=== PATIENT | female | born 1995 | race African-American/Black ===

== ENCOUNTER 2016-05-08 12:14 | Emergency (ER) | payer MEDICAID ==
[~2016-05-08] VITALS: Ht 157.5 cm; Wt 90.0 kg
[~2016-05-08 12:14] MED LIST: ADVAI500I PO; ALBU0.086 NEB; ALBU8I INH; MACR100C PO; METR-1 PO; MOME17I; MONT10TA2 PO
[2016-05-08 12:17] VITALS: BP 122/64; PULSE 65; RESP 14; TEMP 98.1; O2SAT 100
[2016-05-08] MEDS ORDERED: cefTRIAXone 250 MG VIAL IM ONE (12:30)
[2016-05-08] MEDS ORDERED: AZITHROMYCIN PWD FOR SUSP 1 GM PACKET PO ONE (12:30)
[2016-05-08] MEDS ORDERED: LIDOCAINE HCL 1% 50 ML VIAL IM ONE (12:30)
--- NOTE | 2016-05-08 12:59 | PD ---
HPI Chief Complaint: Strawhat Sizer Problem/Complaint Time Seen by Provider: 12:30 Travel History International Travel<30 days: No Contact w/Intl Traveler<30days: No Traveled to known affect area: No History of Present Illness HPI 20-year-old female presents to the emergency room for evaluation of vaginal itching, odor, discharge, urgency, and frequency for the past 2 weeks. Chest reports a left labial bump for the past 2 weeks. Bump is not painful and has not drained or had any surrounding erythema or edema. Patient denies hematuria , dysuria, flank pain, abdominal pain, fever, chills, nausea, and vomiting. Last period was one week ago. She has been having unprotected sex. PFSH Past Medical History Asthma: Yes Diminished Hearing: No Respiratory: Yes (asthma) Integumentary: Yes (eczema) Immunizations Current: Yes Tetanus Vaccination: Unknown Influenza Vaccination: Yes ?: Not LMP: 04/2016 : 1 : 1 Social History Alcohol Use: Yes (social) Tobacco Use: No Substance Use: Yes (marijuana socially) Allergies-Medications (Allergen,Severity, Reaction): Coded Allergies: PEANUTS (Verified Allergy, Intermediate, Shortness of Breath, 05/08/16) Shellfish (Verified Allergy, Intermediate, Shortness of Breath, 05/08/16) Reported Meds & Prescriptions Reported Meds & Active Scripts Active Reported Proventil Ud 0.083% (2.5 Mg/3 Ml) (Albuterol Sulfate) 2.5 Mg/3 Ml Inha 2.5 Mg NEB Q2HR NEB Ventolin Hfa (Albuterol Sulfate) 8 Gm Aero 2 Puff INH Q4 * SHAKE WELL BEFORE USE * Advair Dis14 Inhala2 Fluticasone/Salmeterol 500/50 Inh 1 Puff PO BID Singulair (Montelukast Sodium) 10 Mg Tab 10 Mg PO HS Review of Systems Except as stated in HPI: all other systems reviewed are Neg Physical Exam Narrative GENERAL: Well-nourished, well-developed female in no acute distress. Afebrile. Ambulatory. SKIN: Warm and dry. HEAD: Normocephalic. EYES: No scleral icterus. No injection or drainage. NECK: Supple, trachea midline. No JVD or lymphadenopathy. CARDIOVASCULAR: Regular rate and rhythm without murmurs, gallops, or rubs. RESPIRATORY: Breath sounds equal bilaterally. No accessory muscle use. GASTROINTESTINAL: Abdomen soft, non-tender, nondistended. No guarding. No pelvic tenderness. GENITOURINARY: Normal external genitalia without drainage, edema, or erythema. There is a nontender, 0.5 cm cyst on the left, proximal labia. Vaginal vault without blood. Mild, thick, clear drainage. Cervical os was closed without drainage. No cervical motion tenderness. Uterus nontender and nonenlarged. Bilateral adnexa nontender without masses. Data Data Last Documented VS Vital Signs Date Time Temp Pulse Resp B/P Pulse Ox O2 Delivery O2 Flow Rate FiO2 05/08/16 12:17 98.1 65 14 122/64 100 Orders Gc And Chlamydia Pcr (05/08/16 12:30) Wet Prep Profile (05/08/16 12:30) Urinalysis - C+S If Indicated (05/08/16 12:30) Azithromycin Powd Pack (Zithromax Powd P (05/08/16 12:30) Ceftriaxone Inj (Rocephin Inj) (05/08/16 12:30) Lidocaine 1% Inj (50 Ml) (Xylocaine 1% I (05/08/16 12:30) Ed Urine Pregnancytest Poc (05/08/16 12:30) Labs Laboratory Tests Test 05/08/16 05/08/16 12:45 13:10 Urine Color LIGHT-YELLOW Urine Turbidity CLEAR Urine pH 7.5 Urine Specific [place] 1.011 Urine Protein NEG mg/dL Urine Glucose (UA) NEG mg/dL Urine Ketones NEG mg/dL Urine Occult Blood NEG Urine Nitrite NEG Urine Bilirubin NEG Urine Urobilinogen LESS THAN 2.0 MG/DL Urine Leukocyte Esterase SMALL Urine RBC 1 /hpf Urine WBC 2 /hpf Urine Squamous Epithelial 8 /hpf Cells Urine Bacteria FEW /hpf Microscopic Urinalysis Comment CULT NOT INDICATED Clue Cells (Wet Prep) NONE SEEN Vaginal Trichomonas (Wet Prep) NONE SEEN Vaginal Yeast (Wet Prep) NONE SEEN MDM Medical Decision Making Medical Screen Exam Complete: Yes Emergency Medical Condition: Yes Medical Record Reviewed: Yes Differential Diagnosis Cystitis versus vaginitis versus Narrative Course 20-year-old female presents to the emergency room for evaluation of itchy vaginal discharge and increased vaginal odor for the past 2 weeks. Patient reports having unprotected sex prior to onset of symptoms. She denies dysuria, systemic signs of infection, or evidence of PID. Physical exam reveals mild thick, clear discharge from the vagina. No vaginal lesions or purulent drainage noted. No ovarian or cervical motion tenderness. Abdomen soft, nontender. No CVA tenderness. Vital signs stable. ED urine test is negative. Wet prep is negative. UA is negative for infection. Patient treated empirically for gonorrhea and chlamydia with azithromycin and ceftriaxone. She is discharged with instructions to follow up with the health department for further STD testing return for worsening symptoms. She understands and agrees to plan. Diagnosis Primary Impression: Vaginal discharge Referrals: Electronic [employer] Dept. Patient Instructions: General Instructions, Vaginal Discharge (ED) Additional Instructions: Rest and drink plenty of fluids. You were treated for gonorrhea and chlamydia. If your test results are positive , you will receive a letter in the mail in a few days. Follow-up with the health department for further STD testing. If you continue to have a cottage cheeselike vaginal discharge and itching, you can purchase [id number] Monistat. Follow-up with a primary care physician. Return to the emergency room for worsening symptoms. Disposition: 01 DISCHARGE HOME Condition: Stable Belén Bridges May 08, 2016 12:59
[2016-05-08 13:21] LABS: BACTERIA, URINE FEW /hpf; BLOOD, URINE NEG (NEG); COMMENT (UR) CULT NOT INDICATED; CULTURE IF INDICATED CULT NOT INDICATED; GLUCOSE,URINE NEG (NEG); KETONE, URINE NEG (NEG); NITRITE,URINE NEG (NEG); PH, URINE 7.5 (5.0-8.5); SQUAMOUS EPITHELIAL CELL URINE 8 /hpf (0-5); URINE COLOR LIGHT-YELLOW (YELLW/STRAW)
[2016-05-08 15:46] LABS: CHLAMYDIA PCR DETECTED (NOT DETECT); NEISSERIA PCR NOT DETECTED (NOT DETECT)
== END 2016-05-08 14:07 | disposition home or self-care (01) ==
LOC: NEPA 12:14
DX: N89.8 Other specified noninflammatory disorders of vagina (principal); J45.909 Unspecified asthma, uncomplicated
CPT/HCPCS: 81001; 84703; 87210; 87491; 87591; 96372; 99283; J0696